=== PATIENT | female | born 1990 | race Caucasian/White ===

== ENCOUNTER → 2016-10-11 | Outpatient (CLI) | payer OTHER ==
[~2016-10-11] MED LIST: IOHEXOL 180 MG/ML 10 ML VIAL. INT UTERIN ONE; NORE1TAB11 PO
--- NOTE | 2016-10-11 16:05 | KCIC ---
PROCEDURE Hysterosalpingogram. HISTORY PID. Infertility. TECHNIQUE The procedure was discussed with the patient. Written consent was obtained. Timeout procedure was performed. Speculum was inserted. Cervix was identified and cleaned with Betadine. With some manipulation, catheter with external stiffener was able to be passed through the cervical canal. Balloon was inflated. Speculum was removed. Patient was repositioned and images were obtained AP and obliqued. Balloon was deflated and catheter removed. Patient tolerated the procedure well. Fluoroscopy time is 41 seconds. Image count is 9. COMPARISON December 02, 2014. FINDINGS No filling defect within the endometrial canal is identified. Isthmus segments are normal in caliber. There is dilation of the ampullary portions of each fallopian tube. There is no free spillage of contrast into the peritoneum. IMPRESSION Both fallopian tubes appear occluded at their fimbrial ends, nonspecific although could be related to adhesions or prior bout of pelvic inflammatory disease. Electronically signed by: Gage Sanchez MD (Oct 11, 2016 16:02:50)
== END | disposition home or self-care (01) ==
LOC: KCIC 13:55
PROVIDERS: ATTEND Obstetrics & Gynecology
DX: N73.9 Female pelvic inflammatory disease, unspecified (principal); N97.9 Female infertility, unspecified
CPT/HCPCS: 74400